=== PATIENT | female | born 1940 | race Caucasian/White ===

== ENCOUNTER 2020-02-03 07:30 | Outpatient (CLI) | payer MEDICARE, BC, OTHER ==
[2020-02-03 16:20] LABS: #Eosinphils 0.2 thou/uL (0.0-0.7); #Lymphocytes 1.3 thou/uL (1.20-3.40); #Monocytes 0.7 thou/uL (0.11-0.59); #Neutrophils 7.8 thou/uL (1.40-6.50); %Basophils 0.4 % (0.0-1.0); %Eosinophils 2.1 % (0.0-10.0); %Lymphocytes 12.4 % (21.0-51.0); Hemoglobin 12.8 g/dL (12.0-16.0); Mean Corpuscular HGB CONC 32.3 g/dL (32.0-36.0); Mean Corpuscular Hemoglobin 30.1 pg (27.0-31.0); Mean Corpuscular Volume 93.2 fL (78.0-98.0); Platelet Count 597 thou/uL (130-400); Red Blood Cell (RBC) Count 4.25 mill/uL (4.20-5.40); White Blood Cell (WBC) Count 10.1 thou/uL (4.8-10.8)
[2020-02-03 16:38] LABS: Anion Gap 16 mmol/L (10-20); BUN (Urea Nitrogen) 23 mg/dL (9.8-20.1); Calc. Creatinine Clearance 0 mL/min (70-130); Calcium 9.5 mg/dL (7.8-10.44); Carbon Dioxide 27 mmol/L (23-31); Chloride 96 mmol/L (98-107); Estimated GFR-MDRD 63; Glucose 118 mg/dL (83-110); Potassium 3.8 mmol/L (3.5-5.1); Sodium 135 mmol/L (136-145)
--- NOTE | 2020-02-04 07:11 | EKG ---
Test Reason : Blood Pressure : / mmHG Vent. Rate : 091 BPM Atrial Rate : 091 BPM P-R Int : 178 ms QRS Dur : 090 ms QT Int : 350 ms P-R-T Axes : 062 -04 059 degrees QTc Int : 430 ms Sinus rhythm with frequent Premature ventricular complexes Cannot rule out Anterior infarct , age undetermined very poor quality suggest repeat EKG Abnormal ECG Confirmed by DR. Christa SWENSON ([id number]) on 02/04/2020 7:11:30 AM Referred By: ALCIRA Confirmed By:DR. Christa SWENSON
[2020-02-04 11:55] LABS: SARS-CoV-2 MS2 Positive; SARS-CoV-2 N Gene Negative; SARS-CoV-2 S Gene Negative; SARS-CoV-2 by NAA Not Detected (NotDetected); SARS-CoV-2 orf1ab Negative
== END 2020-02-03 07:31 | disposition home or self-care (01) ==
LOC: LABBT 07:30
PROVIDERS: ATTEND Orthopaedic Surgery
DX: Z01.818 Encounter for other preprocedural examination (principal); Z20.828 Contact with and (suspected) exposure to other viral communicable diseases; S83.207A Unspecified tear of unspecified meniscus, current injury, left knee, initial encounter
CPT/HCPCS: 80048; 85025; 93005; U0003; 87635; 93010

== ENCOUNTER 2020-02-06 09:22 | Day surgery (SDC) | payer MEDICARE, BC ==
[2020-02-04 15:25] VITALS: BMI 26.9
[2020-02-06] MEDS ORDERED: PROPOFOL 200 MG/20 ML VIAL ONE (10:03)
[2020-02-06] MEDS ORDERED: Bupivacaine HCl 0.5%/Epinephrine 1:200,000/PF 30 ml Vial ONE (10:03)
[2020-02-06] MEDS ORDERED: Lidocaine 2% w/Epinephrine 1:200K 20 ML VIAL ONE (10:03)
[2020-02-06] MEDS ORDERED: PROPOFOL 20 ML ONE (10:54)
[2020-02-06] MEDS ORDERED: Fentanyl 100 MCG/2 ML VIAL ONE (12:59)
--- NOTE | 2020-02-06 22:06 | OP ---
DATE OF PROCEDURE: 02/06/2020 PREOPERATIVE DIAGNOSIS: Left knee complex tear posterior horn and body medial meniscus tear. POSTOPERATIVE DIAGNOSES: 1. Left knee complex tear posterior horn and body medial meniscus tear. 2. Large area of grade 2 and some early grade 3 medial femoral condyle. 3. Grade 2 with some early grade 3 lateral tibial plateau. PROCEDURE PERFORMED: Left knee arthroscopy with partial medial meniscectomy. AIRFIELD DEFENCE GUARD: None. ESTIMATED BLOOD LOSS: Minimal. COMPLICATIONS: None. ANESTHESIA: She had general anesthetic as well as a local knee block. DISPOSITION: She went to recovery room in stable condition. INDICATIONS: 79-year-old female who unfortunately has failed nonoperative treatment for a medial meniscus tear and at this time wished to have an arthroscopy performed. DESCRIPTION OF PROCEDURE: After all appropriate consent forms were explained and signed, she was taken to the operative room and at this time was given general anesthetic. Once the level of anesthesia was appropriate, a tourniquet was placed on the left thigh. Leg was then placed in arthroscopic leg boss. The left limb was then prepped and draped in standard surgical fashion. Limb was exsanguinated and tourniquet was taken up to 300 mmHg. Inferolateral portal was established. Scope was placed into the knee joint. A needle localization technique was then used to make a medial working portal. Diagnostic arthroscopy commenced in the notch. ACL and PCL were probed and found to be intact. Medial compartment showed the tibial plateau overall be in good condition. 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 It was a complex tear to include the entire posterior horn and medial meniscus going into the body. Partial meniscectomy was performed using meniscal biter shaver back to a stable base. Lateral compartment was then evaluated. Femur was in good condition. Lateral meniscus was in good condition. There were some grade 2 and early grade 3 changes on the lateral tibial plateau in the central portion, but no necessary treatment was indicated. Gutters were swept through, no loose bodies were noted. Patellofemoral joint was found to be in good condition. At this time, the scope was removed, knee was drained, portals were closed with simple nylon stitch. Bulky sterile dressing was applied. Tourniquet was let down. Toes pinked up nicely. The patient was awakened and taken to the recovery room in stable condition. All counts were correct at the end of the case. She did receive preoperative IV antibiotics. Job ID: [id number]
== END 2020-02-06 16:15 | disposition home or self-care (01) ==
LOC: SDC 09:22
PROVIDERS: ATTEND Orthopaedic Surgery
PROC: 0SBD4ZZ Excision of Left Knee Joint, Percutaneous Endoscopic Approach (ICD-10-PCS; principal; 2020-02-06)
DX: S83.232A Complex tear of medial meniscus, current injury, left knee, initial encounter (principal); M94.262 Chondromalacia, left knee; E78.00 Pure hypercholesterolemia, unspecified; I10 Essential (primary) hypertension; E11.9 Type 2 diabetes mellitus without complications; E78.5 Hyperlipidemia, unspecified; F41.9 Anxiety disorder, unspecified; Z79.82 Long term (current) use of aspirin; Z79.899 Other long term (current) drug therapy
CPT/HCPCS: J0690; J2704; J3010

== ENCOUNTER 2024-06-02 22:39 | Inpatient (IN) | payer OTHER ==
[2024-06-02] MEDS ORDERED: Acetaminophen 650 MG Suppository PR PRN (23:00)
[2024-06-02] MEDS: Morphine 4 MG/ML VIAL SLOW IVP PRN (23:04)
[2024-06-03] MEDS: Morphine 4 MG/ML VIAL SLOW IVP SCH (00:36)
[2024-06-03] MEDS: Lorazepam 2 MG/ML VIAL SLOW IVP SCH (00:36)
[2024-06-03] MEDS: hydrALAZINE 20 MG/ML VIAL SLOW IVP PRN (14:50)
[2024-06-03] MEDS: Scopolamine 1 mg/72 hour Patch TOP PRN (16:01)
[2024-06-03] MEDS: Hyoscyamine SL 0.125 MG TAB SL PRN (20:15)
[2024-06-04] MEDS: Atropine Sulfate 1% Ophth Soln 5 ml Bottle SL PRN ×2 (02:24→03:48)
[2024-06-04] MEDS: Lorazepam 2 MG/ML VIAL SLOW IVP PRN (02:24)
[2024-06-04] MEDS: Hyoscyamine SL 0.125 MG TAB SL PRN (02:25)
[2024-06-05] MEDS: Ondansetron PF 4 MG/2 ML Vial IVP PRN (02:13)
[2024-06-06] MEDS: Morphine IR 10 MG/5 ML UDCUP PO PRN (15:48)
[2024-06-06] MEDS: Lorazepam 1 MG TAB PO PRN (15:49)
[2024-06-06] MEDS: Lorazepam 1 MG TAB PO SCH (18:05)
[2024-06-06] MEDS: Morphine IR 10 MG/5 ML UDCUP PO SCH (18:05)
[2024-06-06] MEDS: Glycopyrrolate 0.4 MG/ 2 ML VIAL SLOW IVP SCH (20:59)
[2024-06-06] MEDS: Morphine 4 MG/ML VIAL SLOW IVP PRN (23:41)
[2024-06-07] MEDS: Lorazepam 2 MG/ML VIAL SLOW IVP PRN ×2 (01:20→11:56)
[2024-06-07] MEDS: Glycopyrrolate 0.4 MG/ 2 ML VIAL SLOW IVP SCH (05:16)
[2024-06-07] MEDS: Morphine 4 MG/ML VIAL SLOW IVP SCH (14:55)
[2024-06-07] MEDS: Lorazepam 2 MG/ML VIAL SLOW IVP SCH (14:55)
[2024-06-07 22:03] VITALS: BP 73/38; TEMP 100.3
== END 2024-06-08 01:55 | disposition expired | DRG 951 ==
LOC: CCU 22:41 → SURG B 06-03 07:32 → SURG A 06-03 21:22 → SURG B 06-03 21:24
PROVIDERS: ADMIT Family Medicine; ATTEND Family Medicine
DX: Z51.5 Encounter for palliative care (principal); G93.41 Metabolic encephalopathy; J96.01 Acute respiratory failure with hypoxia; I62.9 Nontraumatic intracranial hemorrhage, unspecified; E87.1 Hypo-osmolality and hyponatremia; E87.0 Hyperosmolality and hypernatremia; I16.1 Hypertensive emergency; Z66 Do not resuscitate; C43.72 Malignant melanoma of left lower limb, including hip; E87.6 Hypokalemia; E11.9 Type 2 diabetes mellitus without complications
CPT/HCPCS: J0360; J2060; J2270; J2405